=== PATIENT | female | born 1965 | race Two or more races ===

== ENCOUNTER 2020-02-15 10:00 | Outpatient (CLI) | payer OTHER | END 2020-02-15 10:01 | disposition home or self-care (01) | LOC: SONOGRAMA 10:00 | PROVIDERS: ATTEND Pathology Anatomic Pathology & Clinical Pathology | DX: C73 Malignant neoplasm of thyroid gland (principal); E89.0 Postprocedural hypothyroidism; R59.0 Localized enlarged lymph nodes ==

== ENCOUNTER 2024-04-24 08:28 | Outpatient (CLI) | payer OTHER | END 2024-04-24 08:30 | disposition home or self-care (01) | LOC: SONOGRAMA 08:28 | PROVIDERS: ATTEND Pathology Anatomic Pathology | DX: R59.0 Localized enlarged lymph nodes (principal) ==